=== PATIENT | male | born 1990 | race Caucasian/White ===

== ENCOUNTER 2025-07-05 22:40 | Emergency (ER) | payer OTHER, SELFPAY ==
[2025-07-05 22:43] VITALS: BP 165/123; BMI 24.7
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
[2025-07-06] MEDS: ROXICODONE 10 MG PO (00:57)
[2025-07-06 02:23] VITALS: BP 167/110
== END 2025-07-06 02:24 ==
LOC: EMR 22:40
PROVIDERS: EMERGENCY PHYSICIAN Emergency Medicine
DX: G89.18 Other acute postprocedural pain (principal); L76.22 Postprocedural hemorrhage of skin and subcutaneous tissue following other procedure; R03.0 Elevated blood-pressure reading, without diagnosis of hypertension; G89.29 Other chronic pain
CPT/HCPCS: 99283; 73090